=== PATIENT | male | born 1995 | race African-American/Black ===

== ENCOUNTER → 2016-12-01 | Outpatient (CLI) | payer BC ==
--- NOTE | 2016-12-01 15:51 | RAD ---
Radionuclide gastric emptying study, 12/01/2016: History: Weight loss The study was performed utilizing a solid test meal radiolabeled with 2.1 mCi of technetium 99m sulfur colloid. Imaging was performed for 1 hour. There is delayed gastric emptying with the T1/2 calculated at 205 minutes. A normal T1/2 is 60 minutes +/- 30 minutes. An episode of mild gastroesophageal reflux was noted during the study. IMPRESSION: 1. Moderately delayed gastric emptying. 2. Mild gastroesophageal reflux.
== END | disposition home or self-care (01) ==
LOC: NM 07:29
PROVIDERS: ATTEND Internal Medicine Gastroenterology
DX: R63.4 Abnormal weight loss (principal); K30 Functional dyspepsia; K21.9 Gastro-esophageal reflux disease without esophagitis
CPT/HCPCS: 78264; A9541